=== PATIENT | male | born 1955 | race Two or more races ===

== ENCOUNTER 2025-04-20 13:16 | Inpatient (IN) | payer MEDICARE, OTHER ==
[~2025-04-20] VITALS: Ht 185.4 cm; Wt 118.3 kg
--- NOTE | 2025-04-20 14:09 | ED.PDOC ---
History of Present Illness HPI Comments 69-year-old male with a history of CAD and OR in 2008 brought in by EMS complaining of sudden onset of an unprovoked severe headache that started in the occipital area and radiates to the top of his head, onset about 1 hour ago. Patient also reports nausea, light sensitivity, transient blurred vision, diaphoresis and upper abdominal discomfort radiating to the back. He denies any focal weakness, vomiting or shortness of breath. 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[employer] Past Medical History PAST MEDICAL HISTORY: CAD, Gout, HTN, OR Surgical History: Cholecystectomy Surgical History (Other): Spine surgery, bilateral knee surgery, surgery, right upper extremity surgery Family History Family History: Reviewed,noncontributory to illness Social History Smoker: Non-Smoker Alcohol: Denies ETOH Use Drugs: Denies Drug Use Lives In: Home Constitutional: denies: chills, diaphoresis, fatigue, fever, malaise, sweats, weakness, others EENTM: denies: blurred vision, double vision, ear bleeding, ear discharge, ear drainage, ear pain, ear ringing, eye pain, eye redness, hearing loss, mouth pain, mouth swelling, nasal discharge, nose bleeding, nose congestion, nose pain, photophobia, tearing, throat pain, throat swelling, voice changes, others Respiratory: denies: cough, hemoptysis, orthopnea, SOB at rest, shortness of breath, SOB with excertion, stridor, wheezing, others Cardiovascular: denies: chest pain, dizzy spells, diaphoresis, Dyspnea on exertion, edema, irregular heart beat, left arm pain, lightheadedness, palpitations, PND, syncope, others Gastrointestinal: reports: nausea; denies: abdomen distended, abdominal pain, blood streaked bowels, constipated, diarrhea, dysphagia, difficulty swallowing, hematemesis, melena, poor appetite, poor fluid intake, rectal bleeding, rectal pain, vomiting, others Genitourinary: denies: burning, dysuria, flank pain, frequency, hematuria, incontinence, penile discharge, penile sore, pain, testicle pain, testicle swelling, urgency, others Neurological: reports: headache; denies: dizziness, fainting, left sided numbness, left sided weakness, numbness, paresthesia, pre-existing deficit, right sided numbness, right sided weakness, seizure, speech problems, tingling, tremors, weakness, others Musculoskeletal: denies: back pain, gout, joint pain, joint swelling, muscle pain, muscle stiffness, neck pain, others Integumetry: denies: bruises, change in color, change in hair/nails, dryness, laceration, lesions, lumps, rash, wounds, others Allergic/Immunocompromised: denies: Difficulty Healing, Frequent Infections, Hives, Itching, others Hematologic/Lymphatic: denies: anemia, blood clots, easy bleeding, easy bruising, swollen glands, others Endocrine: denies: excessive hunger, excessive sweating, excessive thirst, excessive urination, flushing, intolerance to cold, intolerance to heat, unexplained weight gain, unexplained weight loss, others Psychiatric: denies: anxiety, bipolar disorder, depression, hopeless, panic disorder, schizophrenia, sleepless, suicidal, others All Other Systems: Reviewed and Negative Physical Exam General Appearance: Mild Distress HEENT: PERRL/EOMI, Other (No facial asymmetry. 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 Was a procedure done?: No EKG EKG : Comments Sinus rhythm, rate 71, LA prolonged at 238, normal QRS and QTC intervals, left axis deviation, possible old inferior or anteroseptal infarct, nonspecific T luiza nge. Differential Dx Considerations may include: Migraine, tension, cluster, vascular headache, CVA, TIA, intracranial hemorrhage, mass lesion, ACS, OR, gastritis, GERD, among others X-Ray, Labs, Meds, VS Vital Signs Date Time Temp Pulse Resp B/P (MAP) Pulse Ox O2 Delivery O2 Flow Rate FiO2 04/20/25 15:24 84 20 96 Room Air* 0 21 04/20/25 15:15 97.6 68 16 141/73 (95) 97 97.6 04/20/25 15:14 68 16 141/73 04/20/25 14:31 70 18 153/83 04/20/25 14:22 97.3 70 16 153/83 (106) 96 97.3 04/20/25 14:22 70 16 96 Room Air 04/20/25 13:31 71 04/20/25 13:19 99.0 75 20 150/93 97 99.0 Lab Test 04/20/25 15:28 04/20/25 14:22 Range/Units Troponin I High Sensitivity < 3 L < 3 L </=54 ng/L White Blood Count 7.4 4.4-10.8 10^3/uL Red Blood Count 5.21 4.5-5.90 10^6/uL Hemoglobin 15.5 13.5-17.5 g/dL Hematocrit 45.5 41.0-53.0 % Mean Corpuscular Volume 87.3 80.0-100.0 fL Mean Corpuscular Hemoglobin 29.8 28.0-32.0 pg Mean Corpuscular Hemoglobin Concent 34.2 32.0-36.0 g/dL Red Cell Distribution Width 14.2 11.8-14.3 % Platelet Count 187 140-450 10^3/uL Mean Platelet Volume 8.9 6.9-10.8 fL Neutrophils (%) (Auto) 53.3 37.0-80.0 % Lymphocytes (%) (Auto) 32.3 10.0-50.0 % Monocytes (%) (Auto) 8.4 0.0-12.0 % Eosinophils (%) (Auto) 5.4 0.0-7.0 % Basophils (%) (Auto) 0.6 0.0-2.0 % Neutrophils # (Auto) 4.0 1.6-8.6 10 ^3/uL Lymphocytes # (Auto) 2.4 0.4-5.4 10 ^3/uL Monocytes # (Auto) 0.6 0-1.3 10 ^3/uL Eosinophils # (Auto) 0.4 0-0.8 10 ^3/uL Basophils # (Auto) 0 0-0.2 10 ^3/uL Nucleated Red Blood Cells 0.1 % Sodium Level 139 136-145 mmol/L Potassium Level 4.3 3.5-5.1 mmol/L Chloride Level 106 98-107 mmol/L Carbon Dioxide Level 25 20-31 mmol/L Anion Gap 8 5-15 Blood Urea Nitrogen 19 9-23 mg/dL Creatinine 1.49 H 0.700-1.30 mg/dL Glomerular Filtration Rate Calc 50 >90 mL/min BUN/Creatinine Ratio 12.8 10.0-20.0 Serum Glucose 122 H 74-106 mg/dL Calcium Level 9.5 8.7-10.4 mg/dL Total Bilirubin 0.6 0.2-1.0 mg/dL Aspartate Amino Transferase (AST) 30 13-40 U/L Alanine Aminotransferase (ALT) 34 7-40 U/L Alkaline Phosphatase 110 46-116 U/L B-Type Natriuretic Peptide 58.17 0-100 pg/mL Total Protein 7.2 5.7-8.2 g/dL Albumin 4.8 3.2-4.8 g/dL Lipase 33 12-53 U/L Current Medications Medications (Trade) Dose Ordered Sig/Padmini Route Start Time Stop Time Status Last Admin Hydromorphone HCl (Dilaudid Injection) 1 mg ONCE ONCE IV 04/20/25 14:00 04/20/25 14:01 DC 04/20/25 14:31 Ondansetron HCl (Zofran) 4 mg ONCE ONCE IV 04/20/25 14:00 04/20/25 14:01 DC 04/20/25 14:30 Famotidine (Pepcid Injection) 20 mg ONCE ONCE IV 04/20/25 14:00 04/20/25 14:01 DC 04/20/25 14:30 Ketorolac Tromethamine (Toradol Injection) 15 mg ONCE ONCE IV 04/20/25 15:15 04/20/25 15:16 DC 04/20/25 15:23 Metoclopramide HCl (Reglan Injection) 10 mg ONCE ONCE IV 04/20/25 15:15 04/20/25 15:16 DC 04/20/25 15:23 Ondansetron HCl (Zofran) 4 mg ONCE ONCE IV 04/20/25 15:45 04/20/25 15:46 DC 04/20/25 16:02 PROCEDURE(s): HWOCT - HEAD WITHOUT CONTRAST REASON: sudden onset severe headache ORDER NUMBER(s): [id number], ACCESSION NUMBER(s): [id number] CT brain without contrast CLINICAL INDICATION: sudden onset severe headache FINDINGS: The study was performed in a multidetector scanner. This study performed taking axial images from the skull base up to the vertex. Both brain and bone windows are photographed. Dose lowering techniques have been used including automated exposure control and adjustment of mA and/or KV according to patient size. Normal and symmetrical shape and density of brain parenchyma above and below the tentorium is seen. There is no mass, midline shift or hydrocephalus. No intra/extra-axial collections demonstrated. There is no intracranial hemorrhage. The calvarium is intact. IMPRESSION: 1. No acute intracranial pathology Computed Tomographic Radiation Dosimetry Report: Total CTDI vol = 53.64mGy Total DLP = 53.64mGy-cm All CT scans at this medical facility are performed using dose modulation techniques as appropriate to a performed exam including the following: Automated exposure control was utilized; adjustment of the MA and/or KvP according to patient size; and use of iterative reconstruction technique. EDURE(s): CXRP - CHEST PORTABLE REASON: epig pain ORDER NUMBER(s): [id number], ACCESSION NUMBER(s): [id number] INDICATION: epig pain TECHNIQUE: Frontal view of the chest. COMPARISON: None FINDINGS: . The heart and mediastinal contours are grossly unremarkable. There is no evidence of pleural disease. The lungs are clear. The bony structures of the chest are intact without fracture. IMPRESSION: 1. No evidence of acute disease. X-Ray, Labs, Meds, VS Comment 69-year-old male with a history of CAD, mi, gout and dyslipidemia complaining of sudden onset severe headache associated with nausea, vomiting and transient visual disturbance Initial vitals remarkable for BP 153/83 Exam unremarkable Rhythm strip independently interpreted by me: Sinus rhythm, rate 71, no ectopy. Head CT and chest x-ray unremarkable CBC unremarkable, comprehensive metabolic panel remarkable for creatinine 1.49. lipase, BNP and troponin unremarkable Patient treated with the following in the ED: Dilaudid 1 mg IV, Zofran 1 mg IV, Pepcid 20 mg IV with no improvement of symptoms. Patient had persistent pain and nausea and vomited. Patient subsequently received Toradol 15 mg IV, Reglan 10 mg IV with partial improvement. Plan is to admit the patient for pain and emesis control, possible brain MRI and neurology evaluation. Time of 1ST Reevaluation: 14:18 Reevaluation 1ST: Unchanged Patient Education/Counseling: Diagnosis, Treatment, Need For Follow Up Family Education/Counseling: Diagnosis, Treatment, Need For Follow Up SEPSIS Sepsis Screen Date sepsis recognized/suspect: Apr 20, 2025 Time Sepsis recognized/suspect: 2 Recent Procedure: No On Antibiotic Therapy: No Respiratory Rate >20: No Heart Rate >90: No Temp<36 C (96.8 F) or >38.3 C: No SBP <90 or MAP <65 mmHG: No New Acute Mental Status Change: No Is the patient on CPAP, BIPAP,: No Physician Orders Electrocardigram (04/20/25 13:24) Chest Portable (04/20/25 13:54) Urinalysis (04/20/25 13:54) Head Without Contrast (04/20/25 13:54) Troponin-I Hs (04/20/25 16:54) Vital Signs Date Time Temp Pulse Resp B/P (MAP) Pulse Ox O2 Delivery O2 Flow Rate FiO2 04/20/25 15:24 84 20 96 Room Air* 0 21 04/20/25 15:15 97.6 68 16 141/73 (95) 97 97.6 04/20/25 15:14 68 16 141/73 04/20/25 14:31 70 18 153/83 04/20/25 14:22 97.3 70 16 153/83 (106) 96 97.3 04/20/25 14:22 70 16 96 Room Air 04/20/25 13:31 71 04/20/25 13:19 99.0 75 20 150/93 97 99.0 Laboratory Tests Test 04/20/25 14:22 White Blood Count 7.4 10^3/uL (4.4-10.8) Medications Medications Dose Ordered Sig/Padmini Route Start Time Stop Time Status Last Admin Dose Admin Famotidine 20 mg ONCE ONCE IV 04/20/25 14:00 04/20/25 14:01 [place] 04/20/25 14:30 Hydromorphone HCl 1 mg ONCE ONCE IV 04/20/25 14:00 04/20/25 14:01 DC 04/20/25 14:31 Ketorolac Tromethamine 15 mg ONCE ONCE IV 04/20/25 15:15 04/20/25 15:16 DC 04/20/25 15:23 Metoclopramide HCl 10 mg ONCE ONCE IV 04/20/25 15:15 04/20/25 15:16 DC 04/20/25 15:23 Ondansetron HCl 4 mg ONCE ONCE IV 04/20/25 14:00 04/20/25 14:01 IL 04/20/25 14:30 Ondansetron HCl 4 mg ONCE ONCE IV 04/20/25 15:45 04/20/25 15:46 IL 04/20/25 16:02 Departure 1 Departure Time of Disposition: 16:30 Impression: Primary Impression: Intractable headache Additional Impression: Nausea and vomiting Disposition: ADMITTED INPATIENT Admit to: Tele Condition: Guarded Critical Care Note Critical Care Time?: No Stability Stability form required: No Heart Score Heart Score: Heart Score Response (Comments) Value History Slightly Suspicious 0 EKG Repolarization Disturb 1 Age >65 2 Risk Factors >3 or Hx ASHD 2 Troponin Normal limit 0 Total 5 I personally scribed for MANNY TREVINO MD ([email or web address]) on 04/20/25 at 14:09. Electronically submitted by Tamir Oglesby ([email or web address]). MANNY TREVINO MD Apr 20, 2025 14:09
--- NOTE | 2025-04-20 14:26 | DVH ---
INDICATION: epig pain TECHNIQUE: Frontal view of the chest. COMPARISON: None FINDINGS: . The heart and mediastinal contours are grossly unremarkable. There is no evidence of pleural disea se. The lungs are clear. The bony structures of the chest are intact without fracture. IMPRESSION: 1. No evidence of acute disease.
[2025-04-20] MEDS: FAMOTIDINE (10MG/ML) 2ML VL IV ONE (14:30)
[2025-04-20] MEDS: ONDANSETRON HCL 4 MG/2 ML VIAL IV ONE ×2 (14:30→16:02)
[2025-04-20] MEDS: HYDROmorphone HCL 2 MG/ML VL/or syr IV ONE ×2 (14:31→17:01)
[2025-04-20 14:35] LABS: Hematocrit 45.5 % (41.0-53.0); Hemoglobin 15.5 g/dL (13.5-17.5); Mean Corpuscular Hemoglobin 29.8 pg (28.0-32.0); Mean Corpuscular Volume 87.3 fL (80.0-100.0); Nucleated Red Blood Cells % 0.1 %
--- NOTE | 2025-04-20 14:42 | DVH ---
CT brain without contrast CLINICAL INDICATION: sudden onset severe headache FINDINGS: The study was performed in a multidetector scanner. This study performed taking axial image s from the skull base up to the vertex. Both brain and bone windows are photographed. Dose lowering techniques have been used including automated exposure control and adjustment of mA and /or KV according to patient size. Normal and symmetrical shape and density of brain parenchyma above and below the tentorium is seen. T here is no mass, midline shift or hydrocephalus. No intra/extra-axial collections demonstrated. There is no intracranial hemorrhage. The calvarium is intact. IMPRESSION: 1. No acute intracranial pathology Computed Tomographic Radiation Dosimetry Report: Total CTDI vol = 53.64mGy Total DLP = 53.64mGy-cm Al l CT scans at this medical facility are performed using dose modulation techniques as appropriate to a performed exam including the following: Automated exposure control was utilized; adjustment of the MA and/or KvP according to patient size; and use of iterative reconstruction technique.
[2025-04-20 14:52] LABS: Alanine Aminotransferase 34 U/L (7-40); Albumin 4.8 g/dL (3.2-4.8); Anion Gap 8 (5-15); BUN/Creatinine Ratio 12.8 (10.0-20.0); Blood Urea Nitrogen 19 mg/dL (9-23); Calcium 9.5 mg/dL (8.7-10.4); Carbon Dioxide 25 mmol/L (20-31); Chloride 106 mmol/L (98-107); Lipase 33 U/L (12-53); Potassium 4.3 mmol/L (3.5-5.1); Sodium 139 mmol/L (136-145); Total Protein 7.2 g/dL (5.7-8.2)
[2025-04-20 14:53] LABS: Bilirubin, Total 0.6 mg/dL (0.2-1.0)
[2025-04-20 14:54] LABS: Glucose 122 mg/dL (74-106)
[2025-04-20] MEDS: METOCLOPRAMIDE HCL 5MG/ml INJ 2ml VIAL IV ONE (15:23)
[2025-04-20] MEDS: KETOROLAC TROMETH 30 MG/ML 1ML VIAL IV ONE (15:23)
[2025-04-20 15:24] VITALS: PULSE 84; RESP 20; O2SAT 96
[2025-04-20 15:32] LABS: Alkaline Phosphatase 110 U/L (46-116)
[2025-04-20] MEDS ORDERED: MORPHINE SULFATE INJ 2 MG/ml SYRG IV PRN (16:00)
[2025-04-20] MEDS ORDERED: DOCUSATE SOD 100 MG CAP PO PRN (16:00)
[2025-04-20] MEDS ORDERED: NITROGLYCERIN 0.4 MG SL TAB SL PRN (16:00)
--- NOTE | 2025-04-20 16:06 | DVHHP2 ---
History of Present Illness Reason for Visit: Dizziness History of Present Illness 69-year-old male past medical history gout hypertension [place] 2006, gallbladder surgery, abdominal hernia repair, tearing of the right arm, back surgery, eye surgery chief complaint patient states he woke up this morning and he has a head ache in the posterior head in his radiates to the top of his head. Patient states it is a stabbing pain. He said he never had a pain like this before he does not have a history migraine headaches. He does state some visual changes with blurry vision in his like bothering in his eyes. He denies any weakness but he does state he feels unsteady on his feet. Along with some dizziness. He states the dizziness is so bad he is not able to walk. Patient denies any fever but he did have an episode of sweating while in the ED. patient has a family at bedside surrounded around him he currently denies any chest pain no shortness with the breath when evaluating patient's labs and imaging Reglan was given Toradol Pepcid Zofran Dilaudid which helps with him with this pain CBC was unremarkable creatinine was found to be 1.49 glucose 122 otherwise BNP unremarkable troponin was negative chest x-ray was negative CT scan of the brain was unremarkable. With these findings we will admit and ask for Neurology evaluation we will also start her on meclizine order carotid ultrasound and echocardiogram we will admit to tele Past Medical History See HPI above Past Surgical History See HPI above Family History Reviewed, non-contributory to the management of this case. Past Social History The patient lives at home, denies smoking, alcohol or illicit drugs abuse. Review of Systems Constitutional: No: Fever, Chills, Sweats, Weakness, Malaise, Other Eyes: No: Pain, Vision change, Conjunctivae inflammation, Eyelid inflammation, Other, Redness ENT: No: Ear pain, Ear discharge, Nose pain, Nose discharge, Nose congestion, Mouth pain, Mouth swelling, Throat pain, Throat swelling, Other Respiratory: No: Cough, Dry, Shortness of breath, SOB with excertion, Wheezing, Hemoptysis, Pleuritic Pain, Sputum, Wheezing, Other Cardiovascular: No: Chest Pain, Palpitations, Orthopnea, Paroxysmal Noc. Dyspnea, Edema, Lt Headedness, Other Gastrointestinal: No: Nausea, Vomiting, Abdominal Pain, Diarrhea, Constipation, Melena, Hematochezia, Other Genitourinary: No Dysuria, No Frequency, No Incontinence, No Hematuria, No Retention, No Other Musculoskeletal: No: other, neck pain, shoulder pain, arm pain, back pain, hand pain, leg pain, foot pain Skin: No: Rash, Lesions, Jaundice, Bruising, Other Neurological: Other (Dizziness); No: Weakness, Numbness, Incoordination, Change in speech, Confusion, Seizures Allergies: Coded Allergies: NO KNOWN ALLERGIES (Unverified , 04/20/25) Exam Vital Signs Vital Signs Date Time Temp Pulse Resp B/P (MAP) Pulse Ox O2 Delivery O2 Flow Rate FiO2 04/20/25 15:24 84 20 96 Room Air* 0 21 04/20/25 15:15 97.6 141/73 (95) 97.6 General Appearance: Alert, Oriented X3, Cooperative, No acute distress HEENT: Atraumatic, PERRLA, EOMI, Mucous membr. moist/pink Respiratory: Clear to auscultation, Normal air movement Cardiovascular: Regular rate, Normal S1, Normal S2, No murmurs Abdominal: Normal bowel sounds, Soft, No tenderness, No hepatospenomegaly Extremities: No clubbing, No cyanosis, No edema, Normal pulses, No tenderness/swelling Skin: No rashes, No breakdown, No significant lesion Neuro: Normal gait, Normal speech, Strength at 5/5 X4 ext, Normal tone, Sensation intact, Cranial nerves 3-12 NL, Other (Positive Romberg) Psych/Mental Status: Mental status NL, Mood NL Labs/Xrays CT scan of the brain unremarkable Chest x-ray unremarkable I reviewed labs, imaging CT scan abdomen pelvis, EKG and all diagnostic studies on this patient from ED records and the medical chart Labs Test 04/20/25 15:28 04/20/25 14:22 Range/Units White Blood Count 7.4 4.4-10.8 10^3/uL Red Blood Count 5.21 4.5-5.90 10^6/uL Hemoglobin 15.5 13.5-17.5 g/dL Hematocrit 45.5 41.0-53.0 % Mean Corpuscular Volume 87.3 80.0-100.0 fL Mean Corpuscular Hemoglobin 29.8 28.0-32.0 pg Mean Corpuscular Hemoglobin Concent 34.2 32.0-36.0 g/dL Red Cell Distribution Width 14.2 11.8-14.3 % Platelet Count 187 140-450 10^3/uL Mean Platelet Volume 8.9 6.9-10.8 fL Neutrophils (%) (Auto) 53.3 37.0-80.0 % Lymphocytes (%) (Auto) 32.3 10.0-50.0 % Monocytes (%) (Auto) 8.4 0.0-12.0 % Eosinophils (%) (Auto) 5.4 0.0-7.0 % Basophils (%) (Auto) 0.6 0.0-2.0 % Neutrophils # (Auto) 4.0 1.6-8.6 10 ^3/uL Lymphocytes # (Auto) 2.4 0.4-5.4 10 ^3/uL Monocytes # (Auto) 0.6 0-1.3 10 ^3/uL Eosinophils # (Auto) 0.4 0-0.8 10 ^3/uL Basophils # (Auto) 0 0-0.2 10 ^3/uL Nucleated Red Blood Cells 0.1 % Sodium Level 139 136-145 mmol/L Potassium Level 4.3 3.5-5.1 mmol/L Chloride Level 106 98-107 mmol/L Carbon Dioxide Level 25 20-31 mmol/L Anion Gap 8 5-15 Blood Urea Nitrogen 19 9-23 mg/dL Creatinine 1.49 H 0.700-1.30 mg/dL Glomerular Filtration Rate Calc 50 >90 mL/min BUN/Creatinine Ratio 12.8 10.0-20.0 Serum Glucose 122 H 74-106 mg/dL Calcium Level 9.5 8.7-10.4 mg/dL Total Bilirubin 0.6 0.2-1.0 mg/dL Aspartate Amino Transferase (AST) 30 13-40 U/L Alanine Aminotransferase (ALT) 34 7-40 U/L Alkaline Phosphatase 110 46-116 U/L B-Type Natriuretic Peptide 58.17 0-100 pg/mL Total Protein 7.2 5.7-8.2 g/dL Albumin 4.8 3.2-4.8 g/dL Lipase 33 12-53 U/L SEPSIS Sepsis Screen Date sepsis recognized/suspect: Apr 20, 2025 Time Sepsis recognized/suspect: 1322 Recent Procedure: No On Antibiotic Therapy: No Respiratory Rate >20: No Heart Rate >90: No Temp<36 C (96.8 F) or >38.3 C: No SBP <90 or MAP <65 mmHG: No New Acute Mental Status Change: No Is the patient on CPAP, BIPAP,: No Physician Orders Electrocardigram (04/20/25 13:24) Chest Portable (04/20/25 13:54) Urinalysis (04/20/25 13:54) Head Without Contrast (04/20/25 13:54) Troponin-I Hs (04/20/25 14:54) Troponin-I Hs (04/20/25 16:54) Admit (04/20/25 15:48) Allergies (04/20/25 15:48) Code Status (04/20/25 15:48) 0.9% Ns 1000 Ml (04/20/25 16:00) Ondansetron Hcl (Zofran) (04/20/25 16:00) Docusate Sodium Capsule (Colace Capsule) (04/20/25 16:00) Fall Risk Precautions In Place QSHIFT (04/20/25 15:48) Complete Blood Count (04/21/25 04:00) Comprehensive Metabolic Panel (04/21/25 04:00) Cardiac Diet-2gna,Lofat,Lochol (04/20/25 Dinner) Pt Request For Service (04/20/25 15:48) Echo 2d Mode Cardiac Dop (04/20/25 15:48) Carotid Duplx W Color Dop (04/20/25 15:48) Condition: Stable (04/20/25 15:48) BRP (04/20/25 15:48) Morphine Sulfate Injection (04/20/25 16:00) Sequential Compression Device (04/20/25 ) Nitroglycerin Sublingual (Ntrostat Subli (04/20/25 16:00) Stat Ekg For Chest Pain (04/20/25 15:48) Notify Md Of Changes From Base (04/20/25 15:48) Bond Clerk For 24 Hours (04/20/25 15:48) Emergency Dysrhythmia Protocol (04/20/25 15:48) Rhythm Strips Once Every Shift (04/20/25 15:48) Oxygen By Nasal Cannula (04/20/25 15:48) * Neurology Consult (04/20/25 15:48) Neuro Checks Q2hrs Q2HR (04/20/25 15:48) Vital Signs Date Time Temp Pulse Resp B/P (MAP) Pulse Ox O2 Delivery O2 Flow Rate FiO2 04/20/25 15:24 84 20 96 Room Air* 0 21 04/20/25 15:15 97.6 68 16 141/73 (95) 97 97.6 04/20/25 15:14 68 16 141/73 04/20/25 14:31 70 18 153/83 04/20/25 14:22 97.3 70 16 153/83 (106) 96 97.3 04/20/25 14:22 70 16 96 Room Air 04/20/25 13:31 71 04/20/25 13:19 99.0 75 20 150/93 97 99.0 Laboratory Tests Test 04/20/25 14:22 White Blood Count 7.4 10^3/uL (4.4-10.8) Medications Medications Dose Ordered Sig/Padmini Route Start Time Stop Time Status Last Admin Dose Admin Famotidine 20 mg ONCE ONCE IV 04/20/25 14:00 04/20/25 14:01 DC 04/20/25 14:30 20 MG Hydromorphone HCl 1 mg ONCE ONCE IV 04/20/25 14:00 04/20/25 14:01 DC 04/20/25 14:31 1 MG Ketorolac Tromethamine 15 mg ONCE ONCE IV 04/20/25 15:15 04/20/25 15:16 DC 04/20/25 15:23 15 MG Metoclopramide HCl 10 mg ONCE ONCE IV 04/20/25 15:15 04/20/25 15:16 DC 04/20/25 15:23 10 MG Ondansetron HCl 4 mg ONCE ONCE IV 04/20/25 14:00 04/20/25 14:01 DC 04/20/25 14:30 4 MG Assessment/Plan Assessment/Plan acute intractable headache with dizziness ct scan brain negative Ordered neurology consult fu recs Stroke protocol and precautions PT eval and treat Cardiac diet ordered asa atorvastatin neuro checks q2h fall precautions Bedrest ordered Carotid Doppler study f/u results ordered Echo fu results ordered meclizine acute jamir ordered ivf for now chronic problems gout htn mi 2006 fen/ppx diet ivf scd no gi ppx since no hx of gerds or gi bleed plan admit to tele Plan discussed with: Patient My Orders Orders - HAZEL KNUTSON DNP Procedure Category Date Status Time Admit ADMIT 04/20/25 Transmitted 15:48 Allergies ASHLYN 04/20/25 Transmitted 15:48 Code Status CODE 04/20/25 Transmitted 15:48 0.9% Ns 1000 Ml PHA 04/20/25 Transmitted 16:00 Ondansetron Hcl PHA 04/20/25 Transmitted (Zofran) 16:00 Docusate Sodium PHA 04/20/25 Transmitted Capsule (Colace 16:00 Fall Risk Precautions ASHLYN 04/20/[address] 15:48 Complete Blood Count LAB 04/21/25 Verified 04:00 Comprehensive LAB 04/21/25 Verified Metabolic Panel 04:00 Cardiac DIET 04/20/25 Transmitted Diet-2gna,Lofat,Lochol Dinner Pt Request For Service PT 04/20/25 Transmitted 15:48 Echo 2d Mode Cardiac US 04/20/25 Transmitted DOP 15:48 Carotid Duplx W Color US 04/20/25 Transmitted DOP 15:48 Condition: Stable [facility] 04/20/25 Verified 15:48 BRP [facility] 04/20/25 Verified 15:48 Morphine Sulfate PHA 04/20/25 Verified Injection 16:00 Sequential [facility] 04/20/25 Verified Compression Device Nitroglycerin PHA 04/20/25 Verified Sublingual (Ntrostat 16:00 Stat Ekg For Chest [facility] 04/20/25 Verified Pain 15:48 Notify Md Of Changes [facility] 04/20/25 Verified From Base 15:48 Bond Clerk For [facility] 04/20/25 Verified 24 Hours 15:48 Emergency Dysrhythmia [facility] 04/20/25 Verified Protocol 15:48 Rhythm Strips Once [facility] 04/20/25 Verified Every Shift 15:48 Oxygen By Nasal RT 04/20/25 Verified Cannula 15:48 * Neurology Consult CONS 04/20/25 Verified 15:48 Neuro Checks Q2hrs [facility] 04/20/25 Verified 15:48 Date of Service: Apr 20, 2025 Billing Provider: HAZEL KNUTSON DNP Common Visit Codes: [id number] INP/OBS CARE (HIGH) HAZEL KNUTSON [facility] Apr 20, 2025 16:06
--- NOTE | 2025-04-20 16:21 | DVH ---
Carotid Duplex Clinical History: eval for vascular occlusion with acute dizziness Comparison: None Technique: Duplex Doppler evaluation of the extracranial carotid and vertebral arteries including color Doppler and spectral/pulsed waveform analysis was performed. Findings: RIGHT SIDE: The peak systolic velocities are 74 cm/s in the CCA, 77 cm/s in the ICA. The ICA/CCA ratio is 1.0. The external carotid artery is patent with peak systolic velocity of 60 cm/s proximally. There is appropriate antegrade flow in the right vertebral artery. LEFT SIDE: The peak systolic velocities are 69 cm/s in the CCA, 74 cm/s in the ICA. The ICA/CCA ratio is 1.1. The external carotid artery is patent with peak systolic velocity of 86 cm/s proximally. Mild hyperechoic plaque identified at the carotid bulb. There is appropriate antegrade flow in the left vertebral artery. IMPRESSION: 1. No hemodynamically significant stenosis noted in the right carotid system. 2. No hemodynamically significant stenosis noted in the left carotid system. 3. Mild hyperechoic plaque within the left carotid bulb. Reference: Radiology 2003; 229:[id number] Normal ICA PSV is <125 cm/sec and no plaque or intimal thickening is visible sonographically additional criteria include ICA/CCA PSV ratio <2.0 and ICA EDV <40 cm/sec <50% ICA stenosis ICA PSV is <125 cm/sec and plaque or intimal thickening is visible sonographically additional criteria include ICA/CCA PSV ratio <2.0 and ICA EDV <40 cm/sec 50-69% ICA stenosis ICA PSV is 125-230 cm/sec and plaque is visible sonographically additional criteria include ICA/CCA PSV ratio of 2.0-4.0 and ICA EDV of 40-100 cm/sec 70% ICA stenosis but less than near occlusion ICA PSV is >230 cm/sec and visible plaque and luminal narrowing are seen at schwartz-scale and color Dopp ler ultrasound (the higher the Doppler parameters lie above the threshold of 230 cm/sec, the greater the likelihood of severe disease) additional criteria include ICA/CCA PSV ratio >4 and ICA EDV >100 cm/sec
[2025-04-20] MEDS: SODIUM CHLORIDE 0.9% 1,000 ML IV SCH (16:23)
[2025-04-20] MEDS: ONDANSETRON HCL 4 MG/2 ML VIAL IV PRN (16:59)
[2025-04-20 18:38] VITALS: BP_SYST 120; BP_SYST 135; BP_DIAS 70; BP_DIAS 86; PULSE 69; PULSE 76; RESP 18; TEMP 97.3; TEMP 97.8; O2SAT 92; O2SAT 95
[2025-04-20 20:00] VITALS: PULSE 83; RESP 18
[2025-04-20 21:00] VITALS: BP 135/86; PULSE 76; RESP 18; TEMP 97.3; O2SAT 92
[2025-04-20] MEDS: ATORVASTATIN 20 MG TAB PO SCH (22:16)
--- NOTE | 2025-04-20 22:20 | DVHINCON2 ---
Date of service: Apr 20, 2025 Referring Physician Shelbi Jefferson for Consultation Evaluation for acute headache and dizziness History of Present Illness Mr. Arroyo is a 69 years old right-handed gentleman with a history of hypertension, coronary artery disease, heart attack, obesity, he came to the [facility] on 04/20/2025 with a chief complaint of headache. At this time, he is alert and fully oriented, he provided the following history On 04/18/2025, when he is out working with his vehicle, he developed dizziness, when he returned home, he developed bilateral occipital headache, 3-4/10, he keeps him hydrated, later headache intensity dropped to 1-2/10, but did not go away. On 04/20/2025, the headache suddenly deteriorating, and move to bilateral frontal head region, the headache intensity increased from 1-2/10 to 10/10 over 30-40 minutes, meanwhile he also had increased sweating, nausea, blurry vision, sensitivity to lights. He has never had similar headache previously, in the hospital, the headache intensity has been under control He has no history of headache CBC, 04/20/2025: Unremarkable BUN/CR, 04/20/2025: 19/1.49 Liver function tests, 04/20/2025: Unremarkable Carotid Doppler, 04/20/2025: 1. No hemodynamically significant stenosis noted in the right carotid system. 2. No hemodynamically significant stenosis noted in the left carotid system. 3. Mild hyperechoic plaque within the left carotid bulb CT head, 04/20/2025: No acute intracranial pathology Past Medical History Hypertension, coronary artery disease, heart attack, obesity Past Surgical History Hernia repair, cholecystectomy, lumbar spine surgery, right eye surgery Family History Longevity in the family, no family history of stroke, intracranial hemorrhage, aneurysm Social History Smoker: Non-Smoker Alcohol: Denies ETOH Use Drugs: Denies Drug Use Lives In: Home Allergies: Coded Allergies: NO KNOWN ALLERGIES (Unverified , 04/20/25) Current Medications Current Medications Medications (Trade) Dose Ordered Sig/Padmini Route PRN Reason Start Time Stop Time Status Last Admin Sodium Chloride 1,000 ml @ 100 mls/hr Q10H IV 04/20/25 16:00 04/20/25 16:23 Ondansetron HCl (Zofran) 4 mg Q4HP PRN IV NAUSEA / VOMITING 04/20/25 16:00 04/20/25 21:15 Docusate Sodium (Colace Capsule) 100 mg BIDPRN PRN PO FOR CONSTIPATION 04/20/25 16:00 Morphine Sulfate 2 mg Q4HPRN PRN IV SEVERE PAIN (7-10 PAIN SCALE) 04/20/25 16:00 04/20/25 16:00 DC Nitroglycerin (Ntrostat Sublingual) 0.4 mg Q5MINP PRN SL FOR CHEST PAIN 04/20/25 16:00 Aspirin 81 mg DAILY PO 04/21/25 10:00 Atorvastatin Calcium (Lipitor) 40 mg HS PO 04/20/25 22:00 Hydromorphone HCl (Dilaudid Injection) 0.5 mg Q4HPRN PRN IV MODERATE PAIN (4-6 PAIN SCALE) 04/20/25 16:00 Vital Signs Vital Signs Date Time Temp Pulse Resp B/P (MAP) Pulse Ox O2 Delivery O2 Flow Rate FiO2 04/20/25 18:38 97.8 69 18 120/70 (87) 95 97.8 04/20/25 18:38 Room Air* 0 21 Physical Exam GENERAL EXAM: General: the patient is well developed and nourished. No acute distress. HEENT: Normocephalic, neck is supple, no carotid bruits. No mass. Mild tenderness to palpation in the frontal region, but no tenderness to palpation in bilateral temporal head region, there was no erythema, swelling or prominent vasculatures in the scalp RESPIRATORY: Normal respiratory effort with symmetrical lung expansion. Lungs clear to auscultation. CARDIOVASCULAR: Regular rate and rhythm with no murmurs. S1, S2. ABDOMEN: Soft, nontender, normal bowel sound NEUROLOGICAL: MENTAL STATUS: Awake and alert. Oriented to person, place, time and general circumstances. Able to give personal history. SPEECH, LANGUAGE, HIGHER CORTICAL FUNCTION: no aphasia or dysathria. CRANIAL NERVES: #2: Intact visual haywood to confrontation. The optic discs were sharp. #3,4,6: Pupils are equal, round and reactive. EOMs full and conjugate. No nystagmus. #5: Facial sensation intact in all three divisions bilaterally. Mandibular strength intact. #7: Facial muscles symmetrical and strength intact. #8: Hearing grossly normal to voice. #9,10: Uvula and soft palate rise in the midline. Swallow and voice are normal. #11: Trapezius and sternomastoid strength intact bilaterally. #12: Tongue midline. No fasciculations or atrophy. SENSATION: Sensation to touch and pinprick is normal. MOTOR: Normal tone in the upper and lower extremity. Normal muscle bulk. No fasciculations. No abnormal movements or posturing. Muscle strength of the major groups in the upper extremities is 5/5. Muscle strength of the major groups in the lower extremities is 5/5. REFLEXES: Deep tendon reflexes are symmetrical. No pathological reflexes. CEREBELLAR/COORDINATION: Finger to nose and heel to whatley are normal bilaterally. GAIT/STATION: deferred. Labs/Diagnostic Data Labs Test 04/20/25 15:28 04/20/25 14:22 Range/Units Troponin I High Sensitivity < 3 L </=54 ng/L White Blood Count 7.4 4.4-10.8 10^3/uL Red Blood Count 5.21 4.5-5.90 10^6/uL Hemoglobin 15.5 13.5-17.5 g/dL Hematocrit 45.5 41.0-53.0 % Mean Corpuscular Volume 87.3 80.0-100.0 fL Mean Corpuscular Hemoglobin 29.8 28.0-32.0 pg Mean Corpuscular Hemoglobin Concent 34.2 32.0-36.0 g/dL Red Cell Distribution Width 14.2 11.8-14.3 % Platelet Count 187 140-450 10^3/uL Mean Platelet Volume 8.9 6.9-10.8 fL Neutrophils (%) (Auto) 53.3 37.0-80.0 % Lymphocytes (%) (Auto) 32.3 10.0-50.0 % Monocytes (%) (Auto) 8.4 0.0-12.0 % Eosinophils (%) (Auto) 5.4 0.0-7.0 % Basophils (%) (Auto) 0.6 0.0-2.0 % Neutrophils # (Auto) 4.0 1.6-8.6 10 ^3/uL Lymphocytes # (Auto) 2.4 0.4-5.4 10 ^3/uL Monocytes # (Auto) 0.6 0-1.3 10 ^3/uL Eosinophils # (Auto) 0.4 0-0.8 10 ^3/uL Basophils # (Auto) 0 0-0.2 10 ^3/uL Nucleated Red Blood Cells 0.1 % Sodium Level 139 136-145 mmol/L Potassium Level 4.3 3.5-5.1 mmol/L Chloride Level 106 98-107 mmol/L Carbon Dioxide Level 25 20-31 mmol/L Anion Gap 8 5-15 Blood Urea Nitrogen 19 9-23 mg/dL Creatinine 1.49 H 0.700-1.30 mg/dL Glomerular Filtration Rate Calc 50 >90 mL/min BUN/Creatinine Ratio 12.8 10.0-20.0 Serum Glucose 122 H 74-106 mg/dL Calcium Level 9.5 8.7-10.4 mg/dL Total Bilirubin 0.6 0.2-1.0 mg/dL Aspartate Amino Transferase (AST) 30 13-40 U/L Alanine Aminotransferase (ALT) 34 7-40 U/L Alkaline Phosphatase 110 46-116 U/L B-Type Natriuretic Peptide 58.17 0-100 pg/mL Total Protein 7.2 5.7-8.2 g/dL Albumin 4.8 3.2-4.8 g/dL Lipase 33 12-53 U/L Assessment New onset headache, with unremarkable CT scan Heat stroke Temporal arteritis, less likely Brain aneurysm/subarachnoid hemorrhage, less likely Plan/Recommendation Monitoring Supportive treatment Telemetry ESR CRP CPK More recommendation per clinical course Prognosis: Poor This medical document was created using an electronic medical record system with [employer] dictation system. Although this document has been carefully reviewed, there may still be some phonetic and typographical errors. These areas are purely typographical due to imperfections of the software programs, and do not reflect any compromise in the patient's medical care. Plan discussed with: Patient, Other BOBBI MARIE MD Apr 20, 2025 22:20
[2025-04-20] MEDS: HYDROmorphone HCL 2 MG/ML VL/or syr IV PRN (22:56)
[2025-04-20 23:15] LABS: Creatine Kinase IFCC 176.0 U/L (46-171)
[2025-04-21] VITALS (8 sets, daily range): BP systolic 135–160; BP diastolic 76–86; PULSE 62–80; RESP 18–22; TEMP 97.1–98; O2SAT 93–98
[2025-04-21] MEDS ORDERED: AMLO1TAB23 PO (03:15)
[2025-04-21] MEDS ORDERED: ALLO100T PO (03:15)
[2025-04-21] MEDS ORDERED: ASPI-543 PO (03:15)
[2025-04-21] MEDS ORDERED: LANS30CA58 PO (03:15)
[2025-04-21] MEDS ORDERED: METO1TAB9 PO (03:15)
[2025-04-21] MEDS ORDERED: ATOR-507 PO (03:15)
[2025-04-21] MEDS ORDERED: LISI20TA56 PO (03:15)
[2025-04-21] MEDS ORDERED: ISOS1TAB28 PO (03:15)
[2025-04-21 06:27] LABS: Hematocrit 41.3 % (41.0-53.0); Hemoglobin 14.4 g/dL (13.5-17.5); Mean Corpuscular Hemoglobin 30.4 pg (28.0-32.0); Mean Corpuscular Volume 87.4 fL (80.0-100.0); Nucleated Red Blood Cells % 0.1 %
[2025-04-21 06:52] LABS: Alanine Aminotransferase 35 U/L (7-40); Albumin 4.4 g/dL (3.2-4.8); Alkaline Phosphatase 98 U/L (46-116); Anion Gap 8 (5-15); BUN/Creatinine Ratio 13.2 (10.0-20.0); Bilirubin, Total 0.7 mg/dL (0.2-1.0); Blood Urea Nitrogen 16 mg/dL (9-23); Calcium 9.4 mg/dL (8.7-10.4); Carbon Dioxide 27 mmol/L (20-31); Chloride 107 mmol/L (98-107); Glucose 92 mg/dL (74-106); Potassium 4.2 mmol/L (3.5-5.1); Sodium 142 mmol/L (136-145); Total Protein 6.5 g/dL (5.7-8.2)
[2025-04-21 10:13] LABS: Urine Protein, UAD Negative (Negative)
[2025-04-21] MEDS: SODIUM CHLORIDE 0.9% 1,000 ML IV SCH (14:00)
--- NOTE | 2025-04-21 14:19 | DVHPN2 ---
Subjective Patient is seen at bedside today, doing better. Reviewed: Care Plan Changes from previous H/P or p: No Changes General: Per HPI Eyes: No Pain, No Vision change, No Conjunctivae inflammation, No Eyelid inflammation, No Other, No Redness ENT: No Ear pain, No Ear discharge, No Nose pain, No Nose discharge, No Nose congestion, No Mouth pain, No Mouth swelling, No Throat pain, No Throat swelling, No Other Cardiovascular: No Chest Pain, No Palpitations, No Orthopnea, No Paroxysmal Noc. Dyspnea, No Edema, No Lt Headedness, No Other Respiratory: No Cough, No Dry, No Shortness of breath, No SOB with excertion, No Wheezing, No Hemoptysis, No Pleuritic Pain, No Sputum, No Other Gastrointestinal: No Nausea, No Vomiting, No Abdominal Pain, No Diarrhea, No Constipation, No Melena, No Hematochezia, No Other Genitourinary: No Dysuria, No Frequency, No Incontinence, No Hematuria, No Retention, No Other Musculoskeletal: No other, No neck pain, No shoulder pain, No arm pain, No back pain, No hand pain, No leg pain, No foot pain Skin: No Rash, No Lesions, No Jaundice, No Bruising, No Other Objective Vitals Vital Signs Date Time Temp Pulse Resp B/P (MAP) Pulse Ox O2 Delivery O2 Flow Rate FiO2 04/21/25 13:30 97.9 70 18 160/83 (108) 98 97.9 04/21/25 08:12 Room Air* 0 21 Intake/Output Intake and Output 04/21/25 07:00 Intake Total 1500 ml Balance 1500 ml Intake Oral 700 ml IV Total 800 ml # Voids 2 Exam GEN: Healthy appearing, well-developed, NAD. HEENT: NC/AT; MMM. CV: RRR, no m/r/g. LUNGS: CTAB, no w/r/c. ABD: Soft, NT/ND, NBS, no masses or organomegaly. EXT: skin Warm, well perfused. no rashes. No clubbing, cyanosis, or edema. NEURO: Ambulating with no limitations. No focal deficits. Medications Current Medications Medications Dose Ordered Sig/Padmini Route Start Time Stop Time Status Last Admin Dose Admin Ondansetron HCl 4 mg Q4HP PRN IV 04/20/25 16:00 04/20/25 21:15 4 MG Docusate Sodium 100 mg BIDPRN PRN PO 04/20/25 16:00 Nitroglycerin 0.4 mg Q5MINP PRN SL 04/20/25 16:00 Aspirin 81 mg DAILY PO 04/21/25 10:00 04/21/25 09:33 81 MG Atorvastatin Calcium 40 mg HS PO 04/20/25 22:00 04/20/25 22:16 40 MG Hydromorphone HCl 0.5 mg Q4HPRN PRN IV 04/20/25 16:00 04/20/25 22:56 0.5 MG Amlodipine Besylate 10 mg DAILY PO 04/21/25 22:00 Isosorbide Mononitrate 30 mg DAILY PO 04/22/25 10:00 Lisinopril 20 mg DAILY PO 04/22/25 10:00 Metoprolol Succinate 100 mg DAILY PO 04/22/25 10:00 Sodium Chloride 1,000 ml @ 75 mls/hr [id number] IV 04/21/25 13:45 04/21/25 14:00 75 MLS/HR Allopurinol 100 mg BID PO 04/21/25 22:00 Laboratory Results Laboratory Tests 04/21/25 05:49 Chemistry Test 04/20/25 14:22 04/21/25 05:49 Albumin 4.8 g/dL (3.2-4.8) 4.4 g/dL (3.2-4.8) Calcium Level 9.5 mg/dL (8.7-10.4) 9.4 mg/dL (8.7-10.4) Total Protein 7.2 g/dL (5.7-8.2) 6.5 g/dL (5.7-8.2) Lipid panel Test 04/20/25 14: Lipase 33 U/L (12-53) Cardiac Markers Test 04/20/25 14:22 B-Type Natriuretic Peptide 58.17 pg/mL (0-100) LFT Test 04/20/25 14:22 04/21/25 05:49 Alanine Aminotransferase (ALT) 34 U/L (7-40) 35 U/L (7-40) Alkaline Phosphatase 110 U/L (46-116) 98 U/L (46-116) Aspartate Amino Transferase (AST) 30 U/L (13-40) 26 U/L (13-40) Total Bilirubin 0.6 mg/dL (0.2-1.0) 0.7 mg/dL (0.2-1.0) Urinalysis Test 04/21/25 08:15 Urine Color Colorless (Yellow) Urine Clarity Clear (Clear) Urine pH 6.0 (5.0-9.0) Urine Specific [place] 1.007 (1.001-1.035) Urine Protein Negative (Negative) Urine Ketones Negative (Negative) Urine Blood Negative /uL (Negative) Urine Nitrite Negative (Negative) Urine Bilirubin Negative (Negative) Urine Urobilinogen Normal mg/dL (Negative) Urine Leukocyte Esterase Negative /uL (Negative) Urine RBC 1 /hpf (0 - 3) Urine Microscopic WBC < 1 /HPF (0-3) Urine Squamous Epithelial Cells Few /hpf (<5) Urine Bacteria None seen /hpf (None Seen) Urine Mucus Few (None Seen) Urine Glucose Normal mg/dL (Normal) Labs and/or images reviewed: Labs reviewed by me, Image(s) reviewed by me Assessment/Plan Assessment/Plan 69-year-old male past medical history gout hypertension HI 2006, gallbladder surgery, abdominal hernia repair, tearing of the right arm, back surgery, eye surgery chief complaint patient states he woke up this morning and he has a headache in the posterior head in his radiates to the top of his head. Patient states it is a stabbing pain. He said he never had a pain like this before he does not have a history migraine headaches. He does state some visual changes with blurry vision in his like bothering in his eyes. He denies any weakness but he does state he feels unsteady on his feet. Along with some dizziness. He states the dizziness is so bad he is not able to walk. Patient denies any fever but he did have an episode of sweating while in the ED. patient has a family at bedside surrounded around him he currently denies any chest pain no shortness with the breath when evaluating patient's labs and imaging Reglan was given Toradol Pepcid Zofran Dilaudid which helps with him with this pain CBC was unremarkable creatinine was found to be 1.49 glucose 122 otherwise BNP unremarkable troponin was negative chest x-ray was negative CT scan of the brain was unremarkable. With these findings we will admit and ask for Neurology evaluation we will also start her on meclizine order carotid ultrasound and echocardiogram we will admit to tele 04/21: Patient here with intractable headache, all labs are improved imaging negative, likely heat stroke but we will monitor for 1 more day q.4 neuro checks. Patient will likely be able to go home intake [id number] pain meds for headaches Tylenol and I will send prescription of Compazine second- line. Okay to continue home meds. Intractable headache P.o. intolerance PRESTON due to VMN Gout Hypertension History of HI 2006 -q.6 neuro checks -IV fluids -prn pain control -appreciate neurology following Diet cardiac Tele Full code Plan discussed with: Patient My Orders Orders - MICHEAL KAUR MD Procedure Category Date Status Time Amlodipine Tablet PHA 04/21/25 In Process (Norvasc Tablet) 22:00 Isosorbide PHA 04/22/25 In Process Mononitrate Tablet 10:00 Lisinopril Tablet PHA 04/22/25 In Process (Zestril Tablet) 10:00 Metoprolol Xl PHA 04/22/25 In Process Succinate (Toprol Xl) 10:00 Sodium Chloride 0.9% PHA 04/21/25 In Process 13:45 Allopurinol Tablet PHA 04/21/25 In Process (Zyloprim Tablet) 22:00 Date of Service: Apr 21, 2025 Billing Provider: MICHEAL KAUR MD Common Visit Codes: [id number] INP/OBS CARE(HIGH) MICHEAL KAUR MD Apr 21, 2025 14:19
[2025-04-21] MEDS ORDERED: PROC10TA6 PO (14:20)
--- NOTE | 2025-04-21 19:43 | ECG ---
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
[2025-04-21] MEDS ORDERED: ALLOPURINOL 100 MG TAB PO ONE (22:00)
[2025-04-21] MEDS: ALLOPURINOL 100 MG TAB PO SCH (22:11)
--- NOTE | 2025-04-21 23:44 | DVHINCON2 ---
Date of service: Apr 21, 2025 Referring Physician Mr. Arroyo is a 69 years old right-handed gentleman with a history of hypertension, coronary artery disease, heart attack, obesity, he came to the [facility] on 04/20/2025 with a chief complaint of headache I have seen the patient, talked to his nurse, according to nurse, he is mentally doing fine, no new complaints CBC, 04/20/2025: Unremarkable ESR, 04/20/2025: 15 BUN/CR, 04/20/2025: 19/1.49 CRP, 04/20/2025: 0.37 Liver function tests, 04/20/2025: Unremarkable CPK, 04/20/2025: 176 Carotid Doppler, 04/20/2025: 1. No hemodynamically significant stenosis noted in the right carotid system. 2. No hemodynamically significant stenosis noted in the left carotid system. 3. Mild hyperechoic plaque within the left carotid bulb CT head, 04/20/2025: No acute intracranial pathology History of Present Illness Mr. Arroyo is a 69 years old right-handed gentleman with a history of hypert ension, coronary artery disease, heart attack, obesity, he came to the [facility] on 04/20/2025 with a chief complaint of headache. At this time, he is alert and fully oriented, he provided the following history On 04/18/2025, when he is out working with his vehicle, he developed dizziness, when he returned home, he developed bilateral occipital headache, 3-4/10, he keeps him hydrated, later headache intensity dropped to 1-2/10, but did not go away. On 04/20/2025, the headache suddenly deteriorating, and move to bilateral frontal head region, the headache intensity increased from 1-2/10 to 10/10 over 30-40 minutes, meanwhile he also had increased sweating, nausea, blurry vision, sensitivity to lights. He has never had similar headache previously, in the hospital, the headache intensity has been under control He has no history of headache CBC, 04/20/2025: Unremarkable BUN/CR, 04/20/2025: 19/1.49 Liver function tests, 04/20/2025: Unremarkable Carotid Doppler, 04/20/2025: 1. No hemodynamically significant stenosis noted in the right carotid system. 2. No hemodynamically significant stenosis noted in the left carotid system. 3. Mild hyperechoic plaque within the left carotid bulb CT head, 04/20/2025: No acute intracranial pathology Family History: Patient reports no known family medical history. Allergies: Coded Allergies: NO KNOWN ALLERGIES (Unverified , 04/20/25) Home Meds Active Scripts Prochlorperazine Maleate (Compazine) 10 Mg Tb, 1 TAB PO Q8HP PRN for 10 Days, #20 TAB 0 Refills Prov:MICHEAL KAUR MD 04/21/25 Reported Medications Atorvastatin Calcium (Lipitor) 40 Mg Tab, 1 TAB PO DAILY, #30 TAB 5 Refills 04/21/25 Aspirin (Aspir-Low) 81 Mg Tab, 81 MG PO DAILY for 30 Days, MG 04/21/25 Amlodipine Besylate (Amlodipine Besylate) 10 Mg Tab, 1 TAB PO DAILY 04/21/25 Isosorbide Mononitrate (Isosorbide Mononitrate Er) 30 Mg Tab, 1 TAB PO DAILY 04/21/25 Lisinopril (Lisinopril) 20 Mg Tab, 1 TAB PO DAILY 04/21/25 Allopurinol (Allopurinol) 100 Mg Tab, 2 TAB PO DAILY 04/21/25 Lansoprazole (Lansoprazole Dr) 30 Mg Cap, 1 CAP PO BID 04/21/25 Metoprolol Succinate (Metoprolol Succinate Er) 100 Mg Tab, 1 TAB PO DAILY 04/21/25 Current Medications Current Medications Medications (Trade) Dose Ordered Sig/Padmini Route PRN Reason Start Time Stop Time Status Last Admin Aspirin 81 mg DAILY PO 04/21/25 10:00 04/21/25 09:33 Amlodipine Besylate (Norvasc Tablet) 10 mg DAILY PO 04/21/25 22:00 04/21/25 22:13 Isosorbide Mononitrate (Imdur Er Tablet) 30 mg DAILY PO 04/22/25 10:00 Lisinopril (Zestril Tablet) 20 mg DAILY PO 04/22/25 10:00 Metoprolol Succinate (Toprol Xl) 100 mg DAILY PO 04/22/25 10:00 Sodium Chloride 1,000 ml @ 75 mls/hr [id number] IV 04/21/25 13:45 04/21/25 14:00 Allopurinol (Zyloprim Tablet) 100 mg BID PO 04/21/25 22:00 04/21/25 22:11 Vital Signs Vital Signs Date Time Temp Pulse Resp B/P (MAP) Pulse Ox O2 Delivery O2 Flow Rate FiO2 04/21/25 22:13 145/84 04/21/25 20:00 66 04/21/25 20:00 Room Air* 0 21 04/21/25 16:23 97.9 18 95 97.9 Physical Exam General: the patient is well developed and nourished. No acute distress. MENTAL STATUS: Subjective SPEECH, LANGUAGE, HIGHER CORTICAL FUNCTION: no aphasia or dysathria. CRANIAL NERVES: Pupils are equal, round and reactive. EOMs full and conjugate. No nystagmus. Facial sensation intact in all three divisions bilaterally. Mandibular strength intact. Facial muscles symmetrical and strength intact. Tongue midline. No fasciculations or atrophy. SENSATION: Sensation to touch and pinprick is normal. MOTOR: Normal tone in the upper and lower extremity. Normal muscle bulk. No fasciculations. No abnormal movements or posturing. Muscle strength of the major groups in the extremities is 5/5. REFLEXES: Deep tendon reflexes are symmetrical. No pathological reflexes. CEREBELLAR/COORDINATION: Finger to nose and heel to [place] are normal bilaterally. GAIT/STATION: deferred. Labs/Diagnostic Data Labs Test 04/21/25 08:15 04/21/25 05:49 04/20/25 15:28 04/20/25 14:22 Range/Units Urine Color Colorless Yellow Urine Clarity Clear Clear Urine pH 6.0 5.0-9.0 Urine Specific [place] 1.007 1.001-1.035 Urine Protein Negative Negative Urine Ketones Negative Negative Urine Blood Negative Negative /uL Urine Nitrite Negative Negative Urine Bilirubin Negative Negative Urine Urobilinogen Normal Negative mg/dL Urine Leukocyte Esterase Negative Negative /uL Urine RBC 1 0 - 3 /hpf Urine Microscopic WBC < 1 0-3 /HPF Urine Squamous Epithelial Cells Few <5 /hpf Urine Bacteria None seen None Seen /hpf Urine Mucus Few None Seen Urine Glucose Normal Normal mg/dL White Blood Count 8.4 4.4-10.8 10^3/uL Red Blood Count 4.72 4.5-5.90 10^6/uL Hemoglobin 14.4 13.5-17.5 g/dL Hematocrit 41.3 41.0-53.0 % Mean Corpuscular Volume 87.4 80.0-100.0 fL Mean Corpuscular Hemoglobin 30.4 28.0-32.0 pg Mean Corpuscular Hemoglobin Concent 34.8 32.0-36.0 g/dL Red Cell Distribution Width 14.3 11.8-14.3 % Platelet Count 154 140-450 10^3/uL Mean Platelet Volume 8.8 6.9-10.8 fL Neutrophils (%) (Auto) 58.8 37.0-80.0 % Lymphocytes (%) (Auto) 28.7 10.0-50.0 % Monocytes (%) (Auto) 9.1 0.0-12.0 % Eosinophils (%) (Auto) 2.8 0.0-7.0 % Basophils (%) (Auto) 0.6 0.0-2.0 % Neutrophils # (Auto) 4.9 1.6-8.6 10 ^3/uL Lymphocytes # (Auto) 2.4 0.4-5.4 10 ^3/uL Monocytes # (Auto) 0.8 0-1.3 10 ^3/uL Eosinophils # (Auto) 0.2 0-0.8 10 ^3/uL Basophils # (Auto) 0 0-0.2 10 ^3/uL Nucleated Red Blood Cells 0.1 % Sodium Level 142 136-145 mmol/L Potassium Level 4.2 3.5-5.1 mmol/L Chloride Level 107 98-107 mmol/L Carbon Dioxide Level 27 20-31 mmol/L Anion Gap 8 5-15 Blood Urea Nitrogen 16 9-23 mg/dL Creatinine 1.21 0.700-1.30 mg/dL Glomerular Filtration Rate Calc 64 >90 mL/min BUN/Creatinine Ratio 13.2 10.0-20.0 Serum Glucose 92 74-106 mg/dL Calcium Level 9.4 8.7-10.4 mg/dL Total Bilirubin 0.7 0.2-1.0 mg/dL Aspartate Amino Transferase (AST) 26 13-40 U/L Alanine Aminotransferase (ALT) 35 7-40 U/L Alkaline Phosphatase 98 46-116 U/L Total Protein 6.5 5.7-8.2 g/dL Albumin 4.4 3.2-4.8 g/dL Troponin I High Sensitivity < 3 L </=54 ng/L Erythrocyte Sedimentation Rate 15 0-20 mm/hr Creatine Kinase 176 H 46-171 U/L C-Reactive Protein High Sensitivity 0.37 <1.0 mg/dL B-Type Natriuretic Peptide 58.17 0-100 pg/mL Lipase 33 12-53 U/L Assessment New onset headache, with unremarkable CT scan Heat stroke Temporal arteritis, less likely Brain aneurysm/subarachnoid hemorrhage, less likely Plan/Recommendation Monitoring Supportive treatment Telemetry More recommendation per clinical course This medical document was created using an electronic medical record system with [employer] dictation system. Although this document has been carefully reviewed, there may still be some phonetic and typographical errors. These areas are purely typographical due to imperfections of the software programs, and do not reflect any compromise in the patient's medical care. Plan discussed with: Other BOBBI MARIE MD Apr 21, 2025 23:44
[2025-04-22 01:00] VITALS: BP 146/71; PULSE 61; RESP 20; TEMP 97.9; O2SAT 96
--- NOTE | 2025-04-22 01:26 | DVHSR ---
APPROVED REPORT EXAM: Two-dimensional and M-mode echocardiogram with Doppler and color Doppler. Blood Pressure: 151/79 mmHg INDICATION eval for cardiac function RISK FACTORS Obesity: Height: 6'1, Weight: 255 DIMENSIONS LVDd3.7 (3.8-5.7cm)LA (2D)5.2 (1.9-4.0cm)Aortic Root3.5 (2.0-3.7cm) LVDs2.6 (2.5-4.0cm)LA (MM) (1.9-4.0cm)Aortic Cusp Exc1.9 (1.5-2.0cm) EF (%) 55.0 (55-70%)Rt. Atrium3.0 (1.9-4.0cm)Asc. Aorta cm IVSd1.4 (0.7-1.1cm)RV (D) (1.8-2.4cm) PWd1.1 (0.7-1.1cm) Mitral Valve MitralMitral Stenosis E wave0.63m/sMV Mean GR.mmHg A wave0.80m/sMV Peak GR.27mmHg E/A ratio0.82D MVAcm2 DECEL [id number] 1/2 Timems Aortic Valve Aortic ValveAortic Stenosis V11.08m/Venita Mean GR.4mmHg V21.39m/Venita Peak GR.8mmHg LVOT Diameter2.4 (1.8-2.4cm)Doppler AVA3.51cm2 Pulmonic Valve V21.01m/s Other Information Quality : Technically LimitedRhythm : Technically limited study due to body habitus. Conclusion MILD LVH AND MILD LV DIASTOLIC DYSFUNCTION LV EF IS 65% AND IS NORMAL MITRAL ANNULAR CALCIFICATION AORTIC SCLEROSIS NO EFFUSION
[2025-04-22 05:00] VITALS: BP 139/88; PULSE 66; RESP 18; TEMP 97.1; O2SAT 97
[2025-04-22 08:00] VITALS: PULSE 63; PULSE 66
--- NOTE | 2025-04-22 08:58 | DVHDS2 ---
Discharge Summary Date of Admission Apr 20, 2025 at 15:48 Date of Discharge: Apr 22, 2025 Labs/Diagnostic Data: Laboratory Results Test 04/21/25 08:15 04/21/25 05:49 04/20/25 15:28 04/20/25 14:22 Urine Color Colorless (Yellow) Urine Clarity Clear (Clear) Urine pH 6.0 (5.0-9.0) Urine Specific [place] 1.007 (1.001-1.035) Urine Protein Negative (Negative) Urine Ketones Negative (Negative) Urine Blood Negative /uL (Negative) Urine Nitrite Negative (Negative) Urine Bilirubin Negative (Negative) Urine Urobilinogen Normal mg/dL (Negative) Urine Leukocyte Esterase Negative /uL (Negative) Urine RBC 1 /hpf (0 - 3) Urine Microscopic WBC < 1 /HPF (0-3) Urine Squamous Epithelial Cells Few /hpf (<5) Urine Bacteria None seen /hpf (None Seen) Urine Mucus Few (None Seen) Urine Glucose Normal mg/dL (Normal) White Blood Count 8.4 10^3/uL (4.4-10.8) Red Blood Count 4.72 10^6/uL (4.5-5.90) Hemoglobin 14.4 g/dL (13.5-17.5) Hematocrit 41.3 % (41.0-53.0) Mean Corpuscular Volume 87.4 fL (80.0-100.0) Mean Corpuscular Hemoglobin 30.4 pg (28.0-32.0) Mean Corpuscular Hemoglobin Concent 34.8 g/dL (32.0-36.0) Red Cell Distribution Width 14.3 % (11.8-14.3) Platelet Count 154 10^3/uL (140-450) Mean Platelet Volume 8.8 fL (6.9-10.8) Neutrophils (%) (Auto) 58.8 % (37.0-80.0) Lymphocytes (%) (Auto) 28.7 % (10.0-50.0) Monocytes (%) (Auto) 9.1 % (0.0-12.0) Eosinophils (%) (Auto) 2.8 % (0.0-7.0) Basophils (%) (Auto) 0.6 % (0.0-2.0) Neutrophils # (Auto) 4.9 10 ^3/uL (1.6-8.6) Lymphocytes # (Auto) 2.4 10 ^3/uL (0.4-5.4) Monocytes # (Auto) 0.8 10 ^3/uL (0-1.3) Eosinophils # (Auto) 0.2 10 ^3/uL (0-0.8) Basophils # (Auto) 0 10 ^3/uL (0-0.2) Nucleated Red Blood Cells 0.1 % Sodium Level 142 mmol/L (136-145) Potassium Level 4.2 mmol/L (3.5-5.1) Chloride Level 107 mmol/L (98-107) Carbon Dioxide Level 27 mmol/L (20-31) Anion Gap 8 (5-15) Blood Urea Nitrogen 16 mg/dL (9-23) Creatinine 1.21 mg/dL (0.700-1.30) Glomerular Filtration Rate Calc 64 mL/min (>90) BUN/Creatinine Ratio 13.2 (10.0-20.0) Serum Glucose 92 mg/dL (74-106) Calcium Level 9.4 mg/dL (8.7-10.4) Total Bilirubin 0.7 mg/dL (0.2-1.0) Aspartate Amino Transferase (AST) 26 U/L (13-40) Alanine Aminotransferase (ALT) 35 U/L (7-40) Alkaline Phosphatase 98 U/L (46-116) Total Protein 6.5 g/dL (5.7-8.2) Albumin 4.4 g/dL (3.2-4.8) Troponin I High Sensitivity < 3 ng/L (</=54) Erythrocyte Sedimentation Rate 15 mm/hr (0-20) Creatine Kinase 176 U/L (46-171) C-Reactive Protein High Sensitivity 0.37 mg/dL (<1.0) B-Type Natriuretic Peptide 58.17 pg/mL (0-100) Lipase 33 U/L (12-53) Other Laboratory Tests 04/21/25 05:49 Brief Hx & Hospital Course: presented with nausea vomit. head CT negative. neurology onboard believes this is likely heat stroke, patient did have a PRESTON VMN up to 1.5, at dc coming down to 1.2. patient exam nominal, stable for dc as plan below. discharge diagnoiss: heat stroke likely viral gastroenteritis, possible Intractable headache P.o. intolerance PRESTON due to VMN Gout Hypertension History of ID 2006 discharge plan: - continue hydrate well - for headaches, take 1st tylenol, NO nsaids (ibuprofen motrin aleve due to heart history), 2nd line take prescription compazine upto 3x/day as needed - continue home medications - cardiac diet. - f/u with PCP to review discharge. PCP to repeat BMP to check kidney function changes. Condition at Discharge: Fair Final Diagnosis/Problems List heat stroke likely viral gastroenteritis, possible Intractable headache P.o. intolerance PRESTON due to VMN Gout Hypertension History of ID 2006 Discharge Disposition: Home Discharge Instruct/Medications Diet: Cardiac 2g Na,low cholest Activity: No Restrictions, As Tolerated Scheduled Allopurinol (Allopurinol), 2 TAB PO DAILY, (Reported) Amlodipine Besylate (Amlodipine Besylate), 1 TAB PO DAILY, (Reported) Aspirin (Aspir-Low), 81 MG PO DAILY, (Reported) Atorvastatin Calcium (Lipitor), 1 TAB PO DAILY, (Reported) Isosorbide Mononitrate (Isosorbide Mononitrate Er), 1 TAB PO DAILY, (Reported) Lansoprazole (Lansoprazole Dr), 1 CAP PO BID, (Reported) Lisinopril (Lisinopril), 1 TAB PO DAILY, (Reported) Metoprolol Succinate (Metoprolol Succinate Er), 1 TAB PO DAILY, (Reported) Scheduled PRN Prochlorperazine Maleate (Compazine), 1 TAB PO Q8HP PRN Discharge Statement: "Patient was advised to return to the ER or call 911 if any headaches, dizziness, shortness of breath, chest pain, abdominal pain, bleeding, fevers, or worsening of medical condition. Patient was counseled about treatment plan, medications, possible side effects, patientverbalized understanding. All questions were answered to the best of my ability. This discharge took greater then 30 minutes in planning, reviewing documentation, counseling the patient, and discussing with other team members." Date of Service: Apr 22, 2025 Billing Provider: MICHEAL KAUR MD Common Visit Codes: 51354-HEL/OBS DISCH DAY >30min MICHEAL KAUR MD Apr 22, 2025 08:58
[2025-04-22] MEDS: LISINOPRIL 20 MG TAB PO SCH (09:16)
[2025-04-22] MEDS: ISOSORBIDE MONONITRATE ER 60 MG TAB PO SCH (09:17)
[2025-04-22] MEDS: METOPROLOL SUCCINATE XL 50 MG TAB PO SCH (09:18)
[2025-04-22 10:16] VITALS: BP 159/82; PULSE 68; RESP 18; TEMP 97.7; O2SAT 97
== END 2025-04-22 11:00 | disposition home or self-care (01) | DRG 922 ==
LOC: ER 13:16 → EDBD 13:16 → OVERFLOW 15:48 → TELE-WESTW 18:30
PROVIDERS: ADMIT Nurse Practitioner Family; ATTEND Nurse Practitioner Family
DX: T67.01XA Heatstroke and sunstroke, initial encounter (principal); N17.0 Acute kidney failure with tubular necrosis; I10 Essential (primary) hypertension; E66.9 Obesity, unspecified; Z68.32 Body mass index [BMI] 32.0-32.9, adult; A08.4 Viral intestinal infection, unspecified; I25.10 Atherosclerotic heart disease of native coronary artery without angina pectoris; M10.9 Gout, unspecified; I25.2 Old myocardial infarction; Z90.49 Acquired absence of other specified parts of digestive tract; X30.XXXA Exposure to excessive natural heat, initial encounter; Y93.89 Activity, other specified; Y92.89 Other specified places as the place of occurrence of the external cause; Y99.8 Other external cause status
CPT/HCPCS: 36415; 70450; 71045; 80053; 81001; 82550; 83690; 83880; 84484; 85025; 85652; 86141; 93005; 93306; 93886; 96374; 96375; G0378; J1885; J2405; J3490